=== PATIENT | female | born 1955 | race African-American/Black ===

== ENCOUNTER → 2018-11-13 | Outpatient (CLI) | payer MEDICARE ==
--- NOTE | 2018-11-13 22:17 | RAD ---
Three-view left shoulder radiographs 11/13/2018 CLINICAL HISTORY: Left shoulder pain with stiffness and swelling. AP internal and external rotation and transscapular digital radiographs of the left shoulder were obtained. No fracture or dislocation of the left shoulder is seen. Moderate degenerative changes are seen involving the left AC joint. Mild degenerative changes are seen involving the left humeral joint. IMPRESSION: Degenerative changes are seen involving the left shoulder as discussed above. No acute osseous abnormality is seen. Electronically signed by: Bishop Del Valle MD (11/13/2018 10:14 PM) [facility]
== END | disposition home or self-care (01) ==
LOC: DXRAD 17:22
PROVIDERS: ATTEND Registered Nurse
DX: M19.012 Primary osteoarthritis, left shoulder (principal)
CPT/HCPCS: 73030